=== PATIENT | female | born 1940 | race Caucasian/White ===

== ENCOUNTER → 2022-11-04 10:04 | Outpatient (BNVA) | payer MEDICARE, SELFPAY | PROVIDERS: PCP General Practice; Visit Provider Hospitalist | DX: G47.33 Obstructive sleep apnea (adult) (pediatric) (principal); G47.00 Insomnia, unspecified | CPT/HCPCS: 99212 ==

== ENCOUNTER → 2023-01-27 10:16 | Outpatient (BNVA) | payer MEDICARE, SELFPAY | PROVIDERS: PCP Internal Medicine; Visit Provider Hospitalist | DX: G47.33 Obstructive sleep apnea (adult) (pediatric) (principal); G47.00 Insomnia, unspecified | CPT/HCPCS: 99212 ==

== ENCOUNTER → 2023-04-13 19:30 | Outpatient (REF) | payer MEDICARE, SELFPAY | LOC: HO.SL 19:30 | PROVIDERS: PCP Internal Medicine; Visit Provider Hospitalist | DX: G47.33 Obstructive sleep apnea (adult) (pediatric) (principal) | CPT/HCPCS: 95810 ==

== ENCOUNTER → 2023-04-13 23:46 | Outpatient (BNV) | payer MEDICARE, SELFPAY | PROVIDERS: PCP Internal Medicine; Visit Provider Internal Medicine | DX: G47.33 Obstructive sleep apnea (adult) (pediatric) (principal) | CPT/HCPCS: 95810 ==

== ENCOUNTER 2023-05-12 09:51 | Outpatient (AMB) | payer MEDICARE, SELFPAY ==
--- NOTE | 2023-05-12 09:55 | MHC.OFFVIS ---
Intake Vital Signs 05/12/23 09:56 Height 5 ft 2 in Weight 139 lb BMI 25.4 BP 132/60 Blood Pressure Location Lt brachial Position Sitting Pulse 61 Pulse Source Pulse Oximeter Pulse Oximetry (%) 98 Oxygen Delivery Method Room Air Intake Visit Reasons: Obstructive sleep apnea Route Returner Required: No Allergies atorvastatin [Lipitor] Allergy (Unknown, Verified 05/12/23 09:58) Hives simvastatin [Zocor] Allergy (Unknown, Verified 05/12/23 09:58) Hives prednisone Adverse Reaction (Severe, Verified 05/12/23 09:58) Cough Sulfa Drugs Allergy (Severe, Uncoded 05/12/23 09:58) Rash Pencillin Allergy (Unknown, Uncoded 05/12/23 09:58) Rash HPI HPI Comments History of Present Illness Details 11/04/2022 the patient is here for a a pulmonary follow-up visit. The patient is a 81 year woman with known obstructive sleep apnea. She had been started wish year and was evaluated back in 2019 and has not been seen since then. He has almost been 3 years. In the meantime she has been struggling with her BiPAP drip. She did bring it in to evaluate. Her current pressures are set at 13 overnight. She does complain that the nasal pillows are too small for her. The 10 to follow often wake her up. She also complains about dry mouth. She is considering alternative therapies to treat her sleep apnea. 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 She is considering the hypoglossal nerve stimulator. We did review her sleep study again demonstrating an AHI of 41 suggestive of severe sleep apnea. Explained to her that the outcome data with the hypoglossal nerve stimulator is usually successful by decreasing her AHI down to about 20 the events an hour which is consider still moderate severity. Therefore, the hypoglossal nerve stimulator may be affecting helping her to some degree but will not remove her sleep apnea completely. At this point the BiPAP will be her best option. I would suggest that she can try to find a more comfortable mask that she can use to find it effective. She is also wondering about her need for BiPAP in view of her significant weight loss. It is likely that she may need be okay with lower pressure but I still believe that her sleep apnea will be present. The patient will try a fullface mask. I did provide her with a medium DreamWear fullface mask that she will try. If the patient still cannot get sleep or tolerate the therapy she will call and will plan to repeat a sleep study in address to see if she still needs to have PAP therapy in view of her significant weight loss. Her stay AHI still elevated at 12 over 24. She states that she still struggles with her sleep. She has tried trazodone in the past in the has been affected. Therefore I will send it again for her to take 1-2 tablets at nighttime. She is to start with 1 tablet initially. 01/27/2023 the patient is here for a pulmonary follow-up visit. The patient still struggling with her BiPAP. First she did not get the right mask to be able to tolerated. I did give her a fullface mask but she did not like that. She also has issues with a tear duct and ultimately gets too much air into her eyes which makes uncomfortable as well. She does like the P 10 mask which is the most comfortable she has wore. Having significant daytime drowsiness, with EPWORTH score 11/24. During the last visit I was able to adjust her BiPAP. Therefore I also decrease the pressures further to 10/6. This will be a minimum pressure hopefully does not blow significant about air through that tear duct. In the meantime since the patient has been struggling with her BiPAP and since she has been many years since her last sleep study will go ahead and request a split study in order to see if we can diagnose her with sleep apnea again and ultimately be able to titrate her on her BiPAP. 05/12/2023 the patient is here for a pulmonary follow-up visit. The patient is still struggling with sleep apnea. She did undergo her in-lab sleep study. Demonstrated that she does have an AHI of 15 events per hour consistent with moderate sleep apnea. The patient does have an elevated [place] score of 11/24. She still struggles with BiPAP. She did have an old BiPAP that no longer is recording any information. Therefore, will request an in lab CPAP / BiPAP titration study to assess her PAP therapy needs. Hopefully we can find a pressure that she can not tolerate and we could successfully treat her underlying sleep apnea. In the meantime she is having hard time sleeping. She did try the trazodone but it made her extremely groggy and unsteady in her feet so therefore she stopped it. She has been taking melatonin usually 3 mg and that gives her about an hour to asleep. She will try to double on that to 6 mg consider taking between 5-6 mg nightly. She can also try other holistic or natural approaches such as biliary on route and or chamomile. Adjusted BIPAP 30/04 to 12/8 to /. Has an old S9 VPAP through [facility] Medical History (Updated 05/12/23 @ 20:39 by Ryan Sahni MD) Insomnia KANU (obstructive sleep apnea) Social History (Updated 11/04/22 @ 10:22 by DEUCE Baumann) Patient Tobacco Use Status: Never used Tobacco Review of Systems Const Reports daytime sleepiness, Reports difficulty sleeping, Denies fatigue and Denies fever(s) Eyes Denies change in vision ENT Denies change in voice and Denies lip swelling Card Denies chest pain Resp Denies chest congestion GI Denies abdominal pain Musc Reports no additional complaints Skin/Breast Denies rash Neuro Reports no additional complaints Endo Denies fatigue Ayo/Lymph Reports no additional complaints Aller/Immun Denies lip swelling Physical Exam Vital Signs: Last Vital Signs Pulse 61 05/12/23 09:56 BP 132/60 05/12/23 09:56 Pulse Ox 98 05/12/23 09:56 Oxygen Delivery Method Room Air 05/12/23 09:56 BMI result Body Mass Index 25.4 Const General: comfortable HEENT Head: Yes normocephalic Eyes General: appearance normal, both eyes and all related structures Neck Neck: Yes supple Chest Chest palpation & inspection: normal inspection of the chest Resp Effort & Inspection: normal respiratory effort Auscultation: clear to auscultation bilaterally Cardio Rate: regular rate Rhythm: regular rhythm Heart sounds: S1 normal heart sound present and S2 normal heart sound present GI Palpation (GI): Soft to palpation Skin General skin exam: no rashes or lesions noted and atrophy Extrem General: Yes no clubbing, cyanosis or edema Assessment & Plan Assessment & Plan (1) KANU (obstructive sleep apnea): Code(s): G47.33 - Obstructive sleep apnea (adult) (pediatric) (2) Insomnia: Code(s): G47.00 - Insomnia, unspecified Qualifiers: Insomnia type: primary Qualified Code(s): F51.01 - Primary insomnia Plan In lab CPAP/BIPAP titration study change mask: p10 medium, 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
[2023-05-12 09:56] VITALS: BP 132/60; PULSE 61; O2SAT 98; BMI 25.4
== END 2023-05-12 10:23 | disposition home or self-care (01) ==
PROVIDERS: PCP Internal Medicine; Visit Provider Hospitalist
DX: G47.33 Obstructive sleep apnea (adult) (pediatric) (principal); F51.01 Primary insomnia
CPT/HCPCS: 99214

== ENCOUNTER → 2023-05-12 09:51 | Outpatient (BNVA) | payer MEDICARE, SELFPAY | PROVIDERS: PCP Internal Medicine; Visit Provider Hospitalist | DX: G47.33 Obstructive sleep apnea (adult) (pediatric) (principal); F51.01 Primary insomnia | CPT/HCPCS: 99212 ==

== ENCOUNTER → 2023-06-01 19:30 | Outpatient (REF) | payer MEDICARE, SELFPAY | LOC: HO.SL 19:30 | PROVIDERS: PCP Internal Medicine; Visit Provider Hospitalist | DX: G47.33 Obstructive sleep apnea (adult) (pediatric) (principal) | CPT/HCPCS: 95811 ==

== ENCOUNTER → 2023-06-01 22:52 | Outpatient (BNV) | payer MEDICARE, SELFPAY | PROVIDERS: PCP Internal Medicine; Visit Provider Internal Medicine | DX: G47.33 Obstructive sleep apnea (adult) (pediatric) (principal) | CPT/HCPCS: 95811 ==

== ENCOUNTER 2023-09-15 10:11 | Outpatient (AMB) | payer MEDICARE, SELFPAY ==
--- NOTE | 2023-09-15 10:19 | A.OFFVIS_ITS ---
Intake Vital Signs 09/15/23 10:20 Height 5 ft 2 in Weight 139 lb BMI 25.4 BP 118/60 Blood Pressure Location Lt brachial Position Sitting Pulse 62 Pulse Source Pulse Oximeter Pulse Oximetry (%) 99 Oxygen Delivery Method Room Air Intake Visit Reasons: Obstructive sleep apnea Allergies atorvastatin [Lipitor] Allergy (Unknown, Verified 09/15/23 10:22) Hives simvastatin [Zocor] Allergy (Unknown, Verified 09/15/23 10:22) Hives prednisone Adverse Reaction (Severe, Verified 09/15/23 10:22) Cough Sulfa Drugs Allergy (Severe, Uncoded 09/15/23 10:22) Rash Pencillin Allergy (Unknown, Uncoded 09/15/23 10:22) Rash HPI HPI Comments History of Present Illness Details 11/04/2022 [facility]. The patient is a 81 year woman with known obstructive sleep apnea. She had been started wish year and was evaluated back in 2019 and has not been seen since then. He has almost been 3 years. In the meantime she has been struggling with her BiPAP drip. She did bring it in to evaluate. Her current pressures are set at 13 overnight. She does complain that the nasal pillows are too small for her. The 10 to follow often wake her up. She also complains about dry mouth. She is considering alternative therapies to treat her sleep apnea. 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 She is considering the hypoglossal nerve stimulator. We did review her sleep study again demonstrating an AHI of 41 suggestive of severe sleep apnea. Explained to her that the outcome data with the hypoglossal nerve stimulator is usually successful by decreasing her AHI down to about 20 the events an hour which is consider still moderate severity. Therefore, the hypoglossal nerve stimulator may be affecting helping her to some degree but will not remove her sleep apnea completely. At this point the BiPAP will be her best option. I would suggest that she can try to find a more comfortable mask that she can use to find it effective. She is also wondering about her need for BiPAP in view of her significant weight loss. It is likely that she may need be okay with lower pressure but I still believe that her sleep apnea will be present. The patient will try a fullface mask. I did provide her with a medium DreamWear fullface mask that she will try. If the patient still cannot get sleep or tolerate the therapy she will call and will plan to repeat a sleep study in address to see if she still needs to have PAP therapy in view of her significant weight loss. Her stay AHI still elevated at 12 over 24. She states that she still struggles with her sleep. She has tried trazodone in the past in the has been affected. Therefore I will send it again for her to take 1-2 tablets at nighttime. She is to start with 1 tablet initially. 01/27/2023 the patient is here for a pulm onary follow-up visit. The patient still struggling with her BiPAP. First she did not get the right mask to be able to tolerated. I did give her a fullface mask but she did not like that. She also has issues with a tear duct and ultimately gets too much air into her eyes which makes uncomfortable as well. She does like the P 10 mask which is the most comfortable she has wore. Having significant daytime drowsiness, with EPWORTH score 11/24. During the last visit I was able to adjust her BiPAP. Therefore I also decrease the pressures further to 10/6. This will be a minimum pressure hopefully does not blow significant about air through that tear duct. In the meantime since the patient has been struggling with her BiPAP and since she has been many years since her last sleep study will go ahead and request a split study in order to see if we can diagnose her with sleep apnea again and ultimately be able to titrate her on her BiPAP. 05/12/2023 the patient is here for a pulmonary follow-up visit. The patient is still struggling with sleep apnea. She did undergo her in-lab sleep study. Demonstrated that she does have an AHI of 15 events per hour consistent with moderate sleep apnea. The patient does have an elevated [place] score of 11/24. She still struggles with BiPAP. She did have an old BiPAP that no longer is recording any information. Therefore, will request an in lab CPAP / BiPAP titration study to assess her PAP therapy needs. Hopefully we can find a pressure that she can not tolerate and we could successfully treat her underlying sleep apnea. In the meantime she is having hard time sleeping. She did try the trazodone but it made her extremely groggy and unsteady in her feet so therefore she stopped it. She has been taking melatonin usually 3 mg and that gives her about an hour to asleep. She will try to double on that to 6 mg consider taking between 5-6 mg nightly. She can also try other holistic or natural approaches such as biliary on route and or chamomile. Adjusted BIPAP / to 12/8 to 10/6. Has an old S9 VPAP through [facility] 09/15/2023 the patient is here for a pulm onary follow-up visit. The patient has been still struggling with sleep apnea. Again, she did have the titration study done demonstrating that she did well on a pressure of 11 cm. However, the patient fell and she fractured nose in 3 places and now is having hard time tolerating the pressures. Therefore she went back to using her old VPAP. She brought in to adjusted but I could not do so. Therefore I will try to get access online although I do not believe that her BiPAP has online access. I will get in touch were [facility] to try to make arrangements for her to get adjustments of her machine. The patient also has been having hard time with the mask. She does well with a small nasal cradle. She does like the N30 small wide mask. I did speak to [facility] to see they either can give me access online to change her current VPAP or go ahead and have them send somebody over to change her settings to a lower setting while she recovers from her nasal fracture. Will also request the nasal cradle and 30 mask for her as well. Respiratory w ise the patient is doing well. Will follow-up in 3-4 months [facility] Medical History (Updated 05/12/23 @ 20:39 by Ryan Sahni MD) Insomnia KANU (obstructive sleep apnea) Social History (Updated 11/04/22 @ 10:22 by DEUCE Baumann) Patient Tobacco Use Status: Never used Tobacco Review of Systems Const Reports daytime sleepiness, Reports difficulty sleeping, Denies fatigue and De nies fever(s) Eyes Denies change in vision ENT Denies change in voice, Denies lip swelling, Reports nasal obstruction, Reports nasal trauma and Reports nose pain Card Denies chest pain Resp Denies chest congestion GI Denies abdominal pain Musc Reports no additional complaints Skin/Breast Denies rash Neuro Reports no additional complaints Endo Denies fatigue Ayo/Lymph Reports no additional complaints Aller/Immun Denies lip swelling Physical Exam Vital Signs: Last Vital Signs Pulse 62 09/15/23 10:20 BP 118/60 09/15/23 10:20 Pulse Ox 99 09/15/23 10:20 Oxygen Delivery Method Room Air 09/15/23 10:20 BMI result Body Mass Index 25.4 Const General: comfortable HEENT Head: Yes normocephalic Eyes General: appearance normal, both eyes and all related structures Neck Neck: Yes supple Chest Chest palpation & inspection: normal inspection of the chest Resp Effort & Inspection: normal respiratory effort Auscultation: clear to auscultation bilaterally Cardio Rate: regular rate Rhythm: regular rhythm Heart sounds: S1 normal heart sound present and S2 normal heart sound present GI Palpation (GI): Soft to palpation Skin General skin exam: no rashes or lesions noted and atrophy Extrem General: Yes no clubbing, cyanosis or edema Assessment & Plan Assessment & Plan (1) KANU (obstructive sleep apnea): Code(s): G47.33 - Obstructive sleep apnea (adult) (pediatric) (2) Insomnia: Code(s): G47.00 - Insomnia, unspecified Qualifiers: Insomnia type: primary Qualified Code(s): F51.01 - Primary insomnia Plan Need to adjust VPAP due to her fractured nose will decrease pressure to 6/4 for now. Will need a download change mask: N30 SW mask melatonin to 5-6mg QHS F/U 3 months Coding Level of Care Code Est Pt Level 4 (52758) Diagnoses KANU (obstructive sleep apnea) G47.33 Primary insomnia F51.01 Insomnia type: primary Time Spent (min) 20
[2023-09-15 10:20] VITALS: BP 118/60; PULSE 62; O2SAT 99; BMI 25.4
== END 2023-09-15 10:54 | disposition home or self-care (01) ==
PROVIDERS: PCP Internal Medicine; Visit Provider Hospitalist
DX: G47.33 Obstructive sleep apnea (adult) (pediatric) (principal); F51.01 Primary insomnia
CPT/HCPCS: 99214

== ENCOUNTER → 2023-09-15 10:11 | Outpatient (BNVA) | payer MEDICARE, SELFPAY | PROVIDERS: PCP Internal Medicine; Visit Provider Hospitalist | DX: G47.33 Obstructive sleep apnea (adult) (pediatric) (principal); F51.01 Primary insomnia | CPT/HCPCS: 99212 ==